=== PATIENT | female | born 1985 | race Two or more races ===

== ENCOUNTER 2018-02-13 14:46 | Emergency (ER) | payer MEDICAID ==
[~2018-02-13] VITALS: Ht 162.6 cm; Wt 77.1 kg
[2018-02-13] MEDS ORDERED: Albuterol/Ipratropium 3ml neb HHN ONE (15:15)
[2018-02-13] MEDS ORDERED: Benzonatate 100mg Perles ORAL ONE (15:15)
--- NOTE | 2018-02-13 15:50 | Diagnostic Imaging Report ---
Indication: Chest pain Technique: One view of the chest Comparison: none Findings: Lungs and pleural spaces are clear. Heart size is normal Impression: No acute process
--- NOTE | 2018-02-13 16:30 | Emergency Room Report ---
History of Present Illness General Chief Complaint: Upper Respiratory Illness Source: Patient Present Illness HPI 32-year-old female patient presents ER brought in by ambulance complaining of cough and shortness of breath for the past few days. Reports cough has been present for the past 2 months. Reports cough with green sputum. Reports was seen by another hospital and given cough medication at that time. reports cough worse at night. Denies history of heart attack, stroke, hypertension, asthma, bronchitis, pneumonia. Denies history of wheezing symptoms in the past. Denies fever, chest pain, shortness of breath, hemoptysis. Denies calf pain. Denies smoking cigarettes. Denies recent travel. Denies control medication. Denies neck pain. Allergies: Coded Allergies: No Known Allergies (Unverified , 02/13/18) Patient History Past Medical History: see triage record Now: No Reviewed Nursing Documentation: PMH: Agreed; PSxH: Agreed Nursing Documentation-PMH Past Medical History: No History, Except For Hx Seizures: Yes Review of Systems All Other Systems: negative except mentioned in HPI Physical Exam Vital Signs Date Time Temp Pulse Resp B/P (MAP) Pulse Ox O2 Delivery O2 Flow Rate FiO2 02/13/18 14:58 98.2 94 18 114/65 99 Room Air Sp02 EP Interpretation: reviewed, normal General Appearance: well appearing, no apparent distress, alert, GCS 15, non- toxic Head: normocephalic, atraumatic Eyes: bilateral eye normal inspection, bilateral eye PERRL ENT: hearing grossly normal, normal pharynx, no angioedema, normal voice, TMs + canals normal, uvula midline, moist mucus membranes, nasal congestion Neck: full range of motion Respiratory: lungs clear, normal breath sounds, no rhonchi, no respiratory distress, no accessory muscle use, speaking full sentences, wheezing Cardiovascular #1: regular rate, rhythm, no edema Cardiovascular #2: 2+ radial (R), 2+ radial (L) Musculoskeletal: back normal, digits/nails normal, gait/station normal, normal range of motion, non-tender, no calf tenderness, Dwight's Sign negative Neurologic: alert, oriented x3, responsive, motor strength/tone normal, sensory intact Psychiatric: mood/affect normal Skin: no rash Medical Decision Making PA Attestation Dr. Roberts is my supervising Physician whom patient management has been discussed with. Diagnostic Impression: Primary Impression: Bronchitis ER Course Pt presents to ED c/o cough and shortness of breath. DDX considered but are not limited to asthma, viral URI, influenza, bronchitis, pneumonia. No rhonchi or rales, patient afebrile, low suspicion for pneumonia at this time , does not require x-rays or imaging. no calf pain, no hemoptysis, no chest pain, no recent travel, no smoking cigarettes, no immobilization, negative Homans sign, low suspicion for DVT or PE per Well's criteria. VITAL SIGNS are WNL, patient is afebrile. ER COURSE Patient provided with prednisone and cough medication. chest x-ray negative for acute disease, no crackles on auscultation, suspicion for pneumonia, does not require antibiotics. EKG shows no ST elevations or T-wave inversions, suspicion for NE. chest x-ray. EKG shows no ST elevations, to history of smoking cigarettes, a history of heart disease or NE, does not have cardiac risk factors, does not require cardiac workup at this time, follow-up with primary care provider for further evaluation and treatment as outpatient, low suspicion for cardiac etiology of symptoms. Duoneb breathing treatment provided. Following treatment patient states no longer having difficulty with breathing. Patient is resting comfortably in no acute distress. ER precautions given. DISCHARGE: -Rx given for Prednisone. -Rx provided for Albuterol MDI. -Rx provided for Tessalon Perles -Rx provided for Fluticasone At this time pt is stable for d/c to home. Patient is resting comfortably in no acute distress, nontoxic appearing, able to answer questions without difficulty. Patient to take medications as instructed Will provide with patient care instructions and any necessary prescriptions. Care plan and follow-up instructions provided. Patient instructed to follow-up with primary care provider in 3 - 5 days. Patient questions asked and answered. Patient reports understanding and agreement to treatment plan. ER precautions given. Patient instructed to return to ER immediately for any new or worsening of symptoms including but not limited to increasing SOB, persistent fever. - Please note that this Emergency Department Report was dictated using [employer] technology software, occasionally this can lead to erroneous entry secondary to interpretation by the dictation equipment. EKG Diagnostic Results Rate: tachycardiac Rhythm: NSR ST Segments: no acute changes ASA given to the pt in ED: No PA Scribe Text Jamaal Cisse PA-C Rhythm Strip Diag. Results EP Interpretation: yes Rate: 101 Rhythm: NSR, no PVC's, no ectopy PA Scribe Meagan Cisse PA-C Other X-Ray Diagnostic Results Other X-Ray Diagnostic Results : # of Views/Limited Vs Complete: 1 View Indication: Pain EP Interpretation: Yes PA Xray: Interpretation reviewed, by supervising MD, and agrees with findings. Interpretation: no dislocation, no soft tissue swelling, no fractures Impression: No acute disease PA Scribe Meagan Cisse PA-C Last Vital Signs Date Time Temp Pulse Resp B/P (MAP) Pulse Ox O2 Delivery O2 Flow Rate FiO2 02/13/18 15:46 100 20 99 Room Air 02/13/18 14:58 98.2 114/65 Disposition: HOME, SELF-CARE Condition: Stable Scripts Benzonatate* (TESSALON PERLE*) 100 Mg Capsule 100 MG ORAL THREE TIMES A DAY, #20 PERLE Prov: Robbin Cisse 02/13/18 Fluticasone Propionate* (FLUTICASONE PROPIONATE*) 16 Gm [place].susp 1 SPRAY NASAL TWICE A DAY, #16 GM Prov: Robbin Cisse 02/13/18 Albuterol Sulfate* (ALBUTEROL SULFATE MDI*) 8.5 Gm Hfa.aer.ad 2 PUFF INH Q6H, #1 INH 0 Refills Prov: Robbin Cisse 02/13/18 Prednisone* (PREDNISONE*) 20 Mg Tablet 40 MG ORAL DAILY for 4 Days, #8 TAB Prov: Robbin Cisse 02/13/18 Patient Instructions: Acute Bronchitis, [id number] Additional Instructions: Followup with primary care provider in 3 -5 days. Take medications as directed. Patient questions asked and answered. ER precautions given, patient instructed to return to ER immediately for any new or worsening of symptoms. Robbin Cisse Feb 13, 2018 16:30
[2018-02-13] MEDS ORDERED: TESSALON PERLE100 MG ORAL (16:36)
[2018-02-13] MEDS ORDERED: ALBUTEROL SULF8.5 GM INH (16:36)
[2018-02-13] MEDS ORDERED: FLUTICASONE PRO16 G1 NASAL (16:36)
[2018-02-13] MEDS ORDERED: PREDNISONE20 MG ORAL (16:36)
[2018-02-13 16:45] VITALS: BP 114/65
[2018-02-13 16:48] VITALS: BP 114/65
--- NOTE | 2018-02-15 11:55 | Cardiology Report ---
APPROVED REPORT EKG Measurement Heart [id number] Sinus tachycardia Otherwise normal ECG
== END 2018-02-13 19:00 | disposition home or self-care (01) ==
LOC: EDBD 14:46 → EMR 19:00
DX: J40 Bronchitis, not specified as acute or chronic (principal); R00.0 Tachycardia, unspecified; G40.909 Epilepsy, unspecified, not intractable, without status epilepticus
CPT/HCPCS: 71045; 93005; 94640; 94664; 99284; J7512; J7620